=== PATIENT | female | born 1945 | race Caucasian/White ===

== ENCOUNTER 2017-02-10 13:43 | Outpatient (CLI) | payer MEDICARE ==
[2017-02-10 15:39] LABS: Hematocrit 42.5 % (36.0-47.0); Mean Platelet Volume 8.7 fL (7.4-10.4); Red Blood Cell (RBC) Count 4.29 mill/uL (4.20-5.40); White Blood Cell (WBC) Count 8.8 thou/uL (4.8-10.8)
[2017-02-10 15:47] LABS: PTT 30.1 SEC (22.9-36.1); Prothrombin Time 14.4 SEC (12.0-14.7)
[2017-02-10 16:00] LABS: Anion Gap 14 mmol/L (10-20); BUN (Urea Nitrogen) 26 mg/dL (9.8-20.1); Calc. Creatinine Clearance 0 mL/min (70-130); Calcium 9.2 mg/dL (7.8-10.44); Carbon Dioxide 30 mmol/L (23-31); Chloride 105 mmol/L (98-107); Estimated GFR-MDRD 51
--- NOTE | 2017-02-11 16:33 | EKG ---
Test Reason : Blood Pressure : / mmHG Vent. Rate : 083 BPM Atrial Rate : 093 BPM P-R Int : 000 ms QRS Dur : 076 ms QT Int : 388 ms P-R-T Axes : 000 042 061 degrees QTc Int : 455 ms Atrial fibrillation Low voltage QRS Septal infarct , age undetermined cannot be excluded Abnormal ECG Confirmed by AINSLEY CHONG ([id number]) on 02/11/2017 4:33:07 PM Referred By: ROBERTO CARLOS Confirmed By:AINSLEY CHONG
== END 2017-02-10 13:44 | disposition home or self-care (01) ==
LOC: LABBT 13:43
PROVIDERS: ATTEND Internal Medicine Cardiovascular Disease
DX: Z01.818 Encounter for other preprocedural examination (principal); I48.2 Chronic atrial fibrillation
CPT/HCPCS: 80048; 85027; 85610; 85730; 93005; 93010

== ENCOUNTER 2017-02-12 09:49 | Day surgery (SDC) | payer MEDICARE ==
[2017-02-10 14:19] VITALS: BMI 44.6
[2017-02-12] MEDS ORDERED: Diprivan 20 ML ONE (10:45)
[2017-02-12] MEDS ORDERED: Midazolam HCl 2 mg/2 ml Vial ONE (10:45)
[2017-02-12] MEDS ORDERED: Hydrocortisone 1% Cream 30 GM TUBE ONE (12:06)
--- NOTE | 2017-02-12 12:16 | OP ---
DATE OF SERVICE: 02/12/2017 PREOPERATIVE DIAGNOSIS: Atrial fibrillation. POSTOPERATIVE DIAGNOSIS: Sinus rhythm. PROCEDURE: Synchronized cardioversion. DESCRIPTION OF PROCEDURE: The patient was consented for the procedure. The patient had been taking Eliquis over the last 5 weeks without missing a single dose. We decided to proceed with cardioversio n only. Propofol was used for conscious sedation. Synchronized cardioversion was performed x2 at 150 and 200 joules. Successful cardioversion was noted at 200 joules. IMPRESSION: Successful synchronized cardioversion.
[2017-02-12] MEDS ORDERED: Propofol 200 MG/20 ML VIAL ONE (15:16)
== END 2017-02-12 13:23 | disposition home or self-care (01) ==
LOC: CCL 09:49
PROVIDERS: ATTEND Internal Medicine Cardiovascular Disease
DX: I48.2 Chronic atrial fibrillation (principal); I10 Essential (primary) hypertension; F32.9 Major depressive disorder, single episode, unspecified; M19.90 Unspecified osteoarthritis, unspecified site; Z96.653 Presence of artificial knee joint, bilateral; Z90.49 Acquired absence of other specified parts of digestive tract; Z82.49 Family history of ischemic heart disease and other diseases of the circulatory system; Z79.899 Other long term (current) drug therapy; Z79.01 Long term (current) use of anticoagulants; Z98.890 Other specified postprocedural states; Z87.891 Personal history of nicotine dependence
CPT/HCPCS: 92960; J2250; J2704

== ENCOUNTER 2017-03-08 05:05 | Inpatient (IN) | payer MEDICARE ==
[2017-03-08] MEDS ORDERED: Ondansetron HCl/PF 4 MG/2 ML Vial ONE (05:17)
[2017-03-08] MEDS ORDERED: Diltiazem HCl 125 MG, Admixture Fee 1 EACH in Sodium Chloride 0.9% 100 ML IVPB SCH ×2 (05:45→15:00)
[2017-03-08 05:53] LABS: #Lymphocytes 0.8 thou/uL (1.20-3.40); #Monocytes 0.9 thou/uL (0.11-0.59); #Neutrophils 10.1 thou/uL (1.40-6.50); %Basophils 0.1 % (0.0-1.0); %Eosinophils 0.1 % (0.0-10.0); %Lymphocytes 7.1 % (21.0-51.0); %Monocytes 7.1 % (0.0-10.0); %Neutrophils 85.6 % (42.0-75.0); Hemoglobin 15.2 g/dL (12.0-16.0); Mean Corpuscular HGB CONC 32.8 g/dL (32.0-36.0); Mean Corpuscular Hemoglobin 32.6 pg (27.0-31.0); Mean Corpuscular Volume 99.2 fl (81.0-99.0); Mean Platelet Volume 8.4 fL (7.4-10.4); Platelet Count 163 thou/uL (130-400); RBC Distribution Width 12.7 % (11.5-14.5); Red Blood Cell (RBC) Count 4.68 mill/uL (4.20-5.40); White Blood Cell (WBC) Count 11.9 thou/uL (4.8-10.8)
[2017-03-08] MEDS ORDERED: Azithromycin 500 MG in Sodium Chloride 0.9% 250 ML 250 ML IVPB SCH (06:00)
[2017-03-08 06:09] LABS: ALT (SGPT) 18 U/L (8-55); AST (SGOT) 26 U/L (5-34); Albumin 4.3 g/dL (3.4-4.8); Alkaline Phosphatase 80 U/L (40-150); Anion Gap 17 mmol/L (10-20); BUN (Urea Nitrogen) 19 mg/dL (9.8-20.1); Bilirubin, Total 0.7 mg/dL (0.2-1.2); CK (CPK) 103 U/L (29-168); Calc. Creatinine Clearance 0 mL/min (70-130); Calcium 9.3 mg/dL (7.8-10.44); Carbon Dioxide 22 mmol/L (23-31); Chloride 100 mmol/L (98-107); Estimated GFR-MDRD 48; Globulin 3.4 g/dL (2.4-3.5); Glucose 227 mg/dL (80-115); Potassium 3.8 mmol/L (3.5-5.1); Protein, Total 7.7 g/dL (6.0-8.3); Sodium 135 mmol/L (136-145)
[2017-03-08 06:12] LABS: CKMB 0.6 ng/mL (0-6.6); Troponin I 0.016 ng/mL (< 0.028)
--- NOTE | 2017-03-08 08:07 | RAD ---
UPRIGHT PORTABLE CHEST 1 VIEW: Date: 03/08/17 HISTORY: 71-year-old female with history of fever and hypoxia, with cough, nausea, vomiting, and diarrhea for several days. FINDINGS: Monitor leads overlie the chest. Borderline cardiomegaly. Mild vascular congestion. No confluent pneu monia, overt edema, or pleural effusion. IMPRESSION: Borderline cardiomegaly and mild vascular congestion. No confluent pneumonia, overt edema, pleural ef fusion, or other acute intrathoracic disease. Stable appearance from 06/01/07. POS: [facility]
[2017-03-08] MEDS ORDERED: Ondansetron ODT 4 MG TAB SL PRN (09:20)
[2017-03-08] MEDS ORDERED: Ondansetron HCl/PF 4 MG/2 ML Vial IVP PRN (09:20)
[2017-03-08] MEDS ORDERED: Acetaminophen 325 MG TAB PO PRN ×2 (09:20→11:37)
[2017-03-08 09:48] LABS: Lactic Acid 1.3 mmol/L (0.5-2.2)
[2017-03-08] MEDS ORDERED: Guaifenesin DM 100-10/5 ML UDCUP PO PRN (11:37)
[2017-03-08] MEDS ORDERED: Senokot 8.6 MG TAB PO PRN (11:37)
--- NOTE | 2017-03-08 12:57 | HP ---
REASON FOR ADMISSION: AFIB/flutter with RVR, influenzae A, acute respiratory failure with hypoxia. HISTORY OF PRESENTING ILLNESS: The patient gives history of having coughing, sneezing, nausea with vomiting, all of which started on Friday night. From this morning, she has been having specks of blood when she tries to bring up phlegm with coughing episodes. She has had diarrhea 4 times yesterday and two this morning which is mostly semi-solid stools. She has taken a flu shot for this year. Patient has tested positive for influenza A here in the ER. On arrival, she was found to have had atrial flutter with ventricular rate of 133 beats per minute. The patient states she has known history of atrial fibrillation which was diagnosed in November of last year. She has seen Ashish and has had cardioversion done on 02/12/2017. She apparently was in sinus rhythm for nearly 2 weeks, but went back into her atrial fibrillation in early February. She has a scheduled appointment to see Dr. Alexander on for likely ablation and EP studies. She has no complaints of chest pain or palpitations. No complaints of orthopnea or PND. Had fever of 99 on arrival here. PAST MEDICAL AND SURGICAL HISTORY: History of AFIB, diagnosed in 11/2016, hypertension, prior cardioversion for atrial fib in 02/20/2017, obesity, history of squamous cell carcinoma of skin, bilateral total knee replacement, bilateral rotator cuff repair, cholecystectomy. CURRENT MEDICATIONS: Takes metoprolol 50 mg twice daily, Eliquis 5 mg twice daily, losartan with hydrochlorothiazide 100/25 mg daily, Lasix 20 mg daily, paroxetine 10 mg daily, propafenone 150 mg 4 times daily. ALLERGIES: No known drug allergies. PERSONAL HISTORY: Smoked for a brief period of time and quit in . Does not abuse alcohol or drugs. Lives with her . FAMILY HISTORY: Mother at the age of 87 years. She has had history of colon cancer. Her maternal grandma also had colon cancer. Father at the age of 76 years. He has had history of myocardial infarction and coronary artery disease. REVIEW OF SYSTEMS: The following complete review of systems was negative, unless otherwise mentioned in the HPI or below: Constitutional: Weight loss or gain, ability to conduct usual activities. Skin: Rash, itching. Eyes: Double vision, pain. ENT/Mouth: Nose bleeding, neck stiffness, pain, tenderness. Cardiovascular: Palpitations, dyspnea on exertion, orthopnea. Respiratory: Shortness of breath, wheezing, cough, hemoptysis, fever or night sweats. Gastrointestinal: Poor appetite, abdominal pain, heartburn, nausea, vomiting, constipation, or diarrhea. Genitourinary: Urgency, frequency, dysuria, nocturia. Musculoskeletal: Pain, swelling. Neurologic/Psychiatric: Anxiety, depression. Allergy/Immunologic: Skin rash, bleeding tendency. PHYSICAL EXAMINATION: GENERAL: The patient is a 71-year-old female who is currently not in any acute distress. VITAL SIGNS: Blood pressure 160/128 on arrival, her initial pulse was 152 on arrival, currently around 118 per minute, respiratory rate was 24 on arrival, temperature 99 degrees Fahrenheit, saturating 90% on room air with saturations peaking up to 94% on 2 liters nasal cannula. NECK: Supple, no elevated JVD. EYES: Extraocular muscles intact. Pupils reacting to light. ORAL CAVITY: Mucous membranes are moist. There is congestion in the posterior pharynx. No exudates. CARDIOVASCULAR SYSTEM: S1, S2 heard. Irregular rhythm. RESPIRATORY SYSTEM: Air entry 1+ bilateral, scattered rhonchi plus no wheezes. ABDOMEN: Soft, bowel sounds heard. No tenderness, rigidity or guarding. EXTREMITIES: No peripheral edema or calf tenderness. VASCULAR SYSTEM: Peripheral pulses 1+ bilateral. No ischemic ulcerations or gangrene. CENTRAL NERVOUS SYSTEM: No gross focal deficits seen. Patient is alert, awake , and oriented well. PSYCHIATRIC SYSTEM: The patient's mood is euthymic. No hallucinations or delusions. IMAGING DATA AND LABORATORY DATA: EKG done shows atrial flutter at 133 beats per minute on arrival. White count of 11.9, hemoglobin and hematocrit 15 and 46 , platelet count is 163, MCV is 99 with 85% neutrophils, serum bicarbonate 22, BUN 19, creatinine 1.1, glucose 227, lactic acid 2.3, BNP is 631. Second set of troponin is 0.09, CK-MB 0.6. Influenza nasal swab is positive for A antigen. Chest x-ray done shows mild cardiomegaly with mild pulmonary vascular congestion. CLINICAL IMPRESSION AND PLAN: Patient will be admitted to telemetry for influenza A, acute respiratory failure with hypoxia, atrial flutter/fib with RVR. The patient has felt good after nebulization in the ER. She is also on nasal cannula with saturating around 93%-94% now. We will continue her nebulization along with Tamiflu and empiric Omnicef. We will stop her Eliquis if her epistaxis/hemoptysis gets worsened. She is on propafenone, Lopressor, Hyzaar, and paroxetine at home and we will continue the same dose. We will consult Dr. Hinojosa, her facility security officer, who is consultant internship for this weekend as well. Echo with 2D Doppler for LV function and to rule out thrombus will be obtained. We will continue to closely monitor her on telemetry. HIRAL
[2017-03-08 13:00] LABS: Hemoglobin 14.4 g/dL (12.0-16.0); Platelet Count 149 thou/uL (130-400)
[2017-03-08] MEDS ORDERED: Propafenone HCl 150 MG TAB PO SCH (13:00)
[2017-03-08 13:05] VITALS: BMI 46.0
--- NOTE | 2017-03-08 16:04 | CON ---
DATE OF CONSULTATION: 03/08/2017 REASON FOR CONSULTATION: Atrial fibrillation. HISTORY OF PRESENT ILLNESS: Ms. Salas is a very pleasant 71-year-old woman, who I have seen and eval uated in the past. She underwent successful cardioversion at the end of January for shortness of br eath. She has been on anticoagulation therapy. She has also been on propafenone. Recently, she presented with fevers, chills, cough, congestion. She was found to be in atrial fibril lation. This has been known since her followup visit. She was in atrial fibrillation shortly after cardioversion. She was treated medically. She was also referred to an EP for ablation. Her rate ap pears to be well controlled. PAST MEDICAL HISTORY: Hypertension, cholecystectomy, bilateral knee surgery, obesity. ALLERGIES: None. HOME MEDICATIONS: Include losartan, hydrochlorothiazide, Lasix, paroxetine, meloxicam, metoprolol, F lovent, Tylenol, Sudafed, Claritin, aspirin, Eliquis and propafenone. REVIEW OF SYSTEMS: Ten-point review of systems is reviewed and as above, otherwise negative. PHYSICAL EXAMINATION: GENERAL: Patient is a pleasant female who is in no acute distress. The patient appears her stated a ge. VITAL SIGNS: Blood pressure 120/72, pulse 109, respirations 20. NEUROLOGIC: The patient is alert and oriented times 3 with no focal neurologic deficits. HEENT: Sclerae without icterus. Mouth has moist mucous membranes with normal pallor. NECK: No JVD. Carotid upstroke brisk. No bruits bilaterally. LUNGS: Clear to auscultation with unlabored respirations. BACK: No scoliosis or kyphosis. CARDIAC: Irregularly irregular. ABDOMEN: Soft, nontender, nondistended. No peritoneal signs present. No hepatosplenomegaly. No abnormal striae. EXTREMITIES: 2+ femoral and 2+ dorsalis pedis pulses. No cyanosis, clubbing, or edema. SKIN: No gross abnormalities. PERTINENT LABORATORY DATA: Hemoglobin 14.4, hematocrit 42.1. Creatinine 1.16. BNP of 631, peak tro ponin 0.090. IMPRESSION: 1. Atrial fibrillation with rapid ventricular response. 2. Flu. RECOMMENDATIONS: Continue aspirin in addition to Eliquis at 5 mg one p.o. b.i.d. She would also rec ommend increasing metoprolol to 75 mg one p.o. b.i.d. She would like to proceed with atrial fibrilla tion ablation. At this point, we will also stop Rythmol given that she is back in atrial fibrillatio n.
[2017-03-08] MEDS ORDERED: Metoprolol Tartrate 50 MG TAB PO SCH (21:00)
[2017-03-08] MEDS: Cefdinir 300 MG CAP PO SCH (21:37)
[2017-03-08] MEDS: Apixaban 5 MG TAB PO SCH (21:37)
[2017-03-08] MEDS: Famotidine 20 MG TAB PO SCH (21:38)
[2017-03-08] MEDS: Metoprolol Tartrate 50 MG TAB PO SCH (21:38)
[2017-03-08] MEDS: Oseltamivir 75 MG CAP PO SCH (21:38)
[2017-03-09 05:13] LABS: #Lymphocytes 1.3 thou/uL (1.20-3.40); #Monocytes 0.7 thou/uL (0.11-0.59); #Neutrophils 3.7 thou/uL (1.40-6.50); %Basophils 0.3 % (0.0-1.0); %Eosinophils 0.2 % (0.0-10.0); %Lymphocytes 21.9 % (21.0-51.0); %Monocytes 12.8 % (0.0-10.0); %Neutrophils 64.8 % (42.0-75.0); Hemoglobin 13.5 g/dL (12.0-16.0); Mean Corpuscular HGB CONC 31.3 g/dL (32.0-36.0); Mean Corpuscular Hemoglobin 31.7 pg (27.0-31.0); Mean Platelet Volume 8.4 fL (7.4-10.4); Platelet Count 123 thou/uL (130-400); RBC Distribution Width 12.8 % (11.5-14.5); Red Blood Cell (RBC) Count 4.26 mill/uL (4.20-5.40); White Blood Cell (WBC) Count 5.7 thou/uL (4.8-10.8)
[2017-03-09 05:27] LABS: Anion Gap 12 mmol/L (10-20); BUN (Urea Nitrogen) 19 mg/dL (9.8-20.1); Calc. Creatinine Clearance 112 mL/min (70-130); Calcium 8.9 mg/dL (7.8-10.44); Carbon Dioxide 24 mmol/L (23-31); Chloride 105 mmol/L (98-107); Estimated GFR-MDRD 59; Glucose 88 mg/dL (80-115); Potassium 3.4 mmol/L (3.5-5.1); Sodium 138 mmol/L (136-145)
[2017-03-09] MEDS: Cefdinir 300 MG CAP PO SCH ×2 (09:30→21:31)
[2017-03-09] MEDS: Oseltamivir 75 MG CAP PO SCH ×2 (09:30→21:31)
[2017-03-09] MEDS: Metoprolol Tartrate 50 MG TAB PO SCH ×2 (09:31→21:31)
[2017-03-09] MEDS: Apixaban 5 MG TAB PO SCH ×2 (09:31→21:30)
[2017-03-09] MEDS: PARoxetine 20 MG TAB PO SCH (09:31)
[2017-03-09] MEDS: Losartan/Hydrochlorothiazide 100 mg/25 mg Tablet PO SCH (09:32)
[2017-03-09] MEDS: Multivit, Therapeutic 1 TAB PO SCH (09:32)
[2017-03-09] MEDS: Famotidine 20 MG TAB PO SCH ×2 (09:32→21:31)
--- NOTE | 2017-03-09 10:07 | PDOC.PN ---
- Subjective Encounter Start Date: 03/09/17 Encounter Start Time: 08:00 Subjective: had sob early this am, got resolved with nebs -: no chest pain or palp -: feels better now, is sitting in sofa - Objective Resuscitation Status: Resuscitation Status FULL:Full Resuscitation MAR Reviewed: Yes Vital Signs & Weight: Vital Signs (12 hours) Temp Pulse Resp BP Pulse Ox 03/09/17 08:00 97.5 F L 81 22 H 144/75 H 95 03/09/17 06:53 80 16 96 03/09/17 04:45 94 L 03/09/17 04:00 97.7 F 59 L 20 121/66 94 L 03/09/17 00:32 77 16 96 Weight Weight 277 lb I&O: 03/08/17 03/09/17 03/10/17 06:59 06:59 06:59 Intake Total 1265 Output Total 1000 Balance 265 Result Diagrams: 03/09/17 05:01 03/09/17 05:01 Phys Exam - Physical Examination HEENT: PERRLA, moist MMs Neck: no JVD, supple Respiratory: no wheezing, no rales rhonchi+ Cardiovascular: RRR, no significant murmur Gastrointestinal: soft, non-tender, positive bowel sounds Musculoskeletal: no edema, pulses present Neurological: non-focal, moves all 4 limbs Psychiatric: A&O x 3 Dx/Plan (1) Afib Code(s): I48.91 - UNSPECIFIED ATRIAL FIBRILLATION Status: Acute Comment: rate controlled (2) Influenza A Code(s): J10.1 - FLU DUE TO OTH IDENT INFLUENZA VIRUS W OTH RESP MANIFEST Status: Acute (3) HTN (hypertension) Code(s): I10 - ESSENTIAL (PRIMARY) HYPERTENSION Status: Chronic Qualifiers: Hypertension type: essential hypertension Qualified Code(s): I10 - Essential (primary) hypertension (4) Obesity Code(s): E66.9 - OBESITY, UNSPECIFIED Status: Chronic Qualifiers: Obesity classification: adult class 3 (BMI >= 40) Body mass index: BMI 45.0 -49.9 (5) Osteoarthritis Code(s): M19.90 - UNSPECIFIED OSTEOARTHRITIS, UNSPECIFIED SITE Status: Chronic Qualifiers: Osteoarthritis location: multiple joints Osteoarthritis type: primary Qualified Code(s): M15.0 - Primary generalized (osteo)arthritis - Plan keerthi patton, watch for rvr -: is on increased dose of lopressor at 75mg bid -: omnicef and tamiflu along with nebs -: to ambulate in hallway as tolerated -: asp, eliquis and hyzaar. Off propafenone * . Review of Systems - Medications/Allergies Allergies/Adverse Reactions: Allergies Allergy/AdvReac Type Severity Reaction Status Date / Time No Known Allergies Allergy Verified 03/08/17 10:23 Medications: Current Medications Acetaminophen (Tylenol) 650 mg PO Q4H PRN PRN Reason: Headache/Fever or Pain Last Admin: 03/08/17 21:39 Dose: 650 mg Albuterol/Ipratropium (Duoneb) 3 ml NEB [id number] [facility] Last Admin: 03/09/17 06:53 Dose: 3 ml Apixaban (Eliquis) 5 mg PO BID [facility] Last Admin: 03/09/17 09:31 Dose: 5 mg Aspirin (Aspirin Chewable) 81 mg PO DAILY [facility] Last Admin: 03/09/17 09:32 Dose: 81 mg Cefdinir (Omnicef) 300 mg PO BID [facility] Last Admin: 03/09/17 09:30 Dose: 300 mg Famotidine (Pepcid) 20 mg PO BID [facility] Last Admin: 03/09/17 09:32 Dose: 20 mg Guaifenesin/Dextromethorphan (Robitussin Dm) 15 ml PO Q4H PRN PRN Reason: Cough HCTZ/Losartan Potassium (Hyzaar 100/25) 1 tab PO DAILY [facility] Last Admin: 03/09/17 09:32 Dose: 1 tab Metoprolol Tartrate (Lopressor) 75 mg PO BID [facility] Last Admin: 03/09/17 09:31 Dose: 75 mg Multivitamins (Theragran) 1 tab PO DAILY [facility] Last Admin: 03/09/17 09:32 Dose: 1 tab Oseltamivir Phosphate (Tamiflu) 75 mg PO BID [facility] Stop: 03/13/17 09:01 Last Admin: 03/09/17 09:30 Dose: 75 mg Paroxetine HCl (Paxil) 10 mg PO DAILY [facility] Last Admin: 03/09/17 09:31 Dose: 10 mg Senna (Senokot) 2 tab PO HSPRN PRN PRN Reason: Constipation
[2017-03-09] MEDS: Acetaminophen 500 MG TAB PO PRN (21:36)
--- NOTE | 2017-03-10 08:43 | PRG ---
DATE OF SERVICE: 03/10/2017 SUBJECTIVE: Ms. Salas is doing better. Her heart rate appears to be stable. Her respiratory status also continues to be improving. PHYSICAL EXAMINATION: VITAL SIGNS: Blood pressure 128/63, pulse 63, temperature 97.5. LUNGS: No crackles noted bilaterally. Decreased rales present. HEART: Irregularly irregular. ABDOMEN: Soft, nontender, nondistended. EXTREMITIES: No edema. IMPRESSION: 1. Atrial fibrillation. 2. Recent viral illness. RECOMMENDATIONS: From a cardiovascular standpoint, she is stable. At this point, would continue rat e control and anticoagulation therapy. Will discontinue aspirin. Continue Eliquis 5 mg one p.o. b.i .d. She is also on metoprolol 75 b.i.d. Plan is to follow up with me in the next 3-4 weeks and have a followup appointment with EP that is already scheduled. Please reconsult if needed.
[2017-03-10] MEDS: Oseltamivir 75 MG CAP PO SCH (10:22)
[2017-03-10] MEDS: Cefdinir 300 MG CAP PO SCH (10:23)
[2017-03-10] MEDS: Apixaban 5 MG TAB PO SCH (10:23)
[2017-03-10] MEDS: Metoprolol Tartrate 50 MG TAB PO SCH (10:24)
[2017-03-10] MEDS: Losartan/Hydrochlorothiazide 100 mg/25 mg Tablet PO SCH (10:25)
[2017-03-10] MEDS: Famotidine 20 MG TAB PO SCH (10:26)
[2017-03-10] MEDS: Multivit, Therapeutic 1 TAB PO SCH (10:26)
[2017-03-10] MEDS: PARoxetine 20 MG TAB PO SCH (10:27)
[2017-03-10] MEDS: Acetaminophen 500 MG TAB PO PRN (10:33)
--- NOTE | 2017-03-10 11:19 | PDOC.PN ---
- Subjective Encounter Start Date: 03/10/17 Encounter Start Time: 07:20 Subjective: feels better, cough+ -: no palpitations or chest pain - Objective Resuscitation Status: Resuscitation Status FULL:Full Resuscitation MAR Reviewed: Yes Vital Signs & Weight: Vital Signs (12 hours) Temp Pulse Resp BP Pulse Ox 03/10/17 10:09 98.1 F 89 18 126/77 94 L 03/10/17 07:19 85 16 97 03/10/17 04:00 97.5 F L 63 20 128/63 96 03/10/17 00:28 79 16 96 Weight Weight 277 lb I&O: 03/09/17 03/10/17 03/11/17 06:59 06:59 06:59 Intake Total 1265 1210 Output Total 1000 1200 Balance 265 10 Result Diagrams: 03/09/17 05:01 03/09/17 05:01 Phys Exam - Physical Examination HEENT: PERRLA, moist MMs Neck: no JVD, supple Respiratory: no wheezing, no rales Cardiovascular: no significant murmur, no rub Gastrointestinal: soft, non-tender, positive bowel sounds Musculoskeletal: no edema, pulses present Neurological: non-focal, moves all 4 limbs Psychiatric: A&O x 3 Dx/Plan (1) Atrial flutter Code(s): I48.92 - UNSPECIFIED ATRIAL FLUTTER Status: Acute (2) Afib Code(s): I48.91 - UNSPECIFIED ATRIAL FIBRILLATION Status: Acute Comment: rate controlled (3) Influenza A Code(s): J10.1 - FLU DUE TO OTH IDENT INFLUENZA VIRUS W OTH RESP MANIFEST Status: Acute (4) HTN (hypertension) Code(s): I10 - ESSENTIAL (PRIMARY) HYPERTENSION Status: Chronic Qualifiers: Hypertension type: essential hypertension Qualified Code(s): I10 - Essential (primary) hypertension (5) Obesity Code(s): E66.9 - OBESITY, UNSPECIFIED Status: Chronic Qualifiers: Obesity classification: adult class 3 (BMI >= 40) Body mass index: BMI 45.0 -49.9 (6) Osteoarthritis Code(s): M19.90 - UNSPECIFIED OSTEOARTHRITIS, UNSPECIFIED SITE Status: Chronic Qualifiers: Osteoarthritis location: multiple joints Osteoarthritis type: primary Qualified Code(s): M15.0 - Primary generalized (osteo)arthritis - Plan oral omnicef, tamiflu and alb inhaler prn -: a.flutter/fib per cardiology advice -: has outpt appt with on Mar -: may dc home if ok with cardiology * .
[2017-03-10 12:38] VITALS: BP 117/66; TEMP 98
[2017-03-10 13:22] LABS: Hemoglobin 14.5 g/dL (12.0-16.0); Platelet Count 160 thou/uL (130-400)
--- NOTE | 2017-03-10 17:52 | EKG ---
Test Reason : Blood Pressure : / mmHG Vent. Rate : 088 BPM Atrial Rate : 088 BPM P-R Int : 252 ms QRS Dur : 084 ms QT Int : 398 ms P-R-T Axes : 050 005 055 degrees QTc Int : 481 ms Sinus rhythm with sinus arrhythmia with 1st degree A-V block Nonspecific ST abnormality Left atrial enlargement Low voltage QRS Abnormal ECG When compared with ECG of 08-MAR-2017 05:21, (Unconfirmed) Sinus rhythm has replaced Atrial flutter Vent. rate has decreased BY [address] no longer depressed in Lateral leads T wave amplitude has increased in Inferior leads Nonspecific T wave abnormality no longer evident in Lateral leads Confirmed by DOREEN JASSO, DR. Syed ([id number]) on 03/10/2017 5:51:58 PM Referred By: DIDI Confirmed By:DR. Yahaira LOGAN MD
--- NOTE | 2017-03-10 23:38 | CON ---
DATE OF CONSULTATION: 03/10/2017 ELECTROPHYSIOLOGY CONSULTATION REPORT REFERRING PHYSICIAN: Mykel Hinojosa M.D. I am seeing Ms. Salas at our [facility] telemetry floor as an electrophysiology dairy consultant. Her problems are: 1. Sustained atrial arrhythmias. A. Prior history of atrial fibrillation requiring propafenone on administration, cardioversion on . B. Current admission with subsequent atrial flutter with typical isthmus-dependent on morphology, bu t with controlled ventricular rates. C. Chronic anticoagulation with Eliquis. 2. Acute hospitalization with influenza. 3. History of preserved LVEF 55% to 60% diastolic dysfunction, difficulty due to ongoing atrial fibr illation, mild MR, mild TR on echo on 03/09/2017. 4. Coronary artery risk factor. A. Obesity. B. Hypertension. ALLERGIES: None. MEDICATIONS AT HOME: Include Eliquis 5 mg twice a day, metoprolol 50 mg twice a day, losartan with h ydrochlorothiazide 100/25 mg daily, Lasix 20 mg daily, paroxetine, propafenone 150 mg 4 times a day. SUBJECTIVE: Ms. Salas is here with symptoms of flu. She was admitted on , showed a bloody phleg m. She denies palpitations. Has chronic dyspnea, but not worse than usual. She denies chest pains. Denies passing out. No new stroke-like symptoms or bleeding issues noted. Apart from nausea and v omiting, no other gastrointestinal issues. REVIEW OF SYSTEMS: The rest of 12-point system otherwise unremarkable. PAST MEDICAL HISTORY: As above. Patient has been diagnosed to have atrial fibrillation. In November , cardioversion as above was performed. Previous episode was 2 atrial fibrillations, but not flutter as per Dr. Hinojosa's recollection. SOCIAL HISTORY: Patient denies smoking, ETOH, or drug use. FAMILY HISTORY: Noncontributory. OBJECTIVE DATA: VITAL SIGNS: Blood pressure is 117/66, heart rate is 87, respirations 20, temperature 98 degrees Fah renheit. GENERAL: She is alert and oriented woman with elevated BMI, in no apparent distress. NECK: Supple. Jugular veins are distended. CHEST: Coarse without crackles. CARDIAC: Heart sounds are irregularly irregular. S1 and S2 variable. No murmur or gallop. ABDOMEN: Benign. Bowel sounds positive. EXTREMITIES: Lower extremities without edema, clubbing, or cyanosis. Pulses are adequate. NEUROLOGIC: Patient is nonfocal. MUSCULOSKELETAL: No joint swelling or deformities. SKIN: Without rash. DATABASE: EKGs reviewed revealing typical atrial flutter with variable AV conduction, occasional 2:1 conduction was also seen, more better-controlled rates are seen on telemetry as well. LABORATORY DATA: White cell count is 5.7, hemoglobin is 13.5, platelet count is 123. Sodium 138, po tassium 3.4, BUN is 19, creatinine 0.94. The blood cultures are negative x2, but nasopharyngeal swab is positive for influenza A. ASSESSMENT AND PLAN: Ms. Salas is a pleasant 71-year-old woman with history of persistent atrial fib rillation requiring cardioversion and propafenone use. She is now admitted with the influenza and he r atrial arrhythmia recurred, but at this time it seems to be more in typical atrial flutter than atr ial fibrillation. She is taking propafenone 150 mg 3 times a day, which was stopped during this hospitalization. We discussed the mechanisms for both atrial fibrillation and atrial flutter, the differences between them as well. At this point, I agree with holding propafenone, which might have organized the atrial fibrillation to atrial flutter. We discussed with her the option of ablation versus cardioversion, which likely though alone will not be sufficient to keep her out of atrial arrhythmia. I detailed th e difference between the atrial fibrillation and atrial flutter ablation as well. Our planning at this point is to obtain further data from Dr. Hinojosa's office. She already has ap pointments scheduled in the beginning of March. Thus, we had a good time to discuss further treat ment options as well. Hopefully, by then, her flu-like symptoms resolved for now. I have encouraged her to continue Eliquis and metoprolol both.
--- NOTE | 2017-03-11 01:10 | DIS ---
DATE OF ADMISSION: 03/08/2017 DATE OF DISCHARGE: 03/10/2017 DISCHARGE DISPOSITION: To home. PRIMARY DISCHARGE DIAGNOSES: Influenza A with bronchitis, resolving; atrial fibrillation with rapid ventricular response/aflutter, which is rate controlled. SECONDARY DISCHARGE DIAGNOSES: Hypertension, obesity, osteoarthritis. PROCEDURES DONE DURING HOSPITALIZATION: Echo with 2D Doppler done showed EF of 55%-60%. Chest x-ray done showed mild pulmonary vascular congestion with cardiomegaly, no confluent pneumonia seen. Bloo d cultures x2, no growth. Influenza A antigen was positive on the nasopharyngeal swab for flu. Whit e count was 11 on the day of admission with discharge numbers of 5.7, troponin I was indeterminate pe aking up to 0.09. BNP 631. DISCHARGE MEDICATIONS: Albuterol inhaler q.6 hourly p.r.n., Eliquis 5 mg twice daily, Omnicef 300 mg p.o. twice daily for 6 days, Lasix 20 mg daily, Hyzaar 100/25 mg 1 tab daily, Lopressor 75 mg twice daily, multivitamin 1 tab once daily, Tamiflu 75 mg twice daily, paroxetine 10 mg daily. ALLERGIES: No known drug allergies. INPATIENT CONSULTS: Dr. Hinojosa for Cardiology. DISCHARGE PLAN: Patient to follow up with Dr. Hinojosa as advised and Dr. Darrell Alexander on 03/27. BRIEF COURSE DURING HOSPITALIZATION: The patient initially got admitted with complaints of coughing, sneezing, nausea, and vomiting from Friday night. She was positive for influenza A in the ER. Misha keller also had nearly 4 times diarrhea prior to arrival. There were more of semi-solid stools. She had fever of 99 degrees on arrival as well. Her EKG revealed atrial fibrillation with RVR. The pat ient was placed initially on Cardizem drip along with nebulizers and Tamiflu with empiric antibiotics . She has responded well to the above measures. She was evaluated by Dr. Hinojosa. Her atrial fib rillation with RVR got converted to atrial flutter during her stay. This morning, she was seen by Dr Alfredito Hinojosa again and has been cleared for discharge. The patient has a followup appointment with Dr Alfredito Alexander, molder punch on the 03/27, for likely EP evaluation and ablation. She is other mata hemodynamically stable and we will be shortly discharged. Please see a [id number] documentati on for the day of discharge on [facility].
== END 2017-03-10 14:13 | disposition home or self-care (01) | DRG 193 ==
LOC: ERS 05:05 → 2NO 09:17
PROVIDERS: ADMIT Internal Medicine; ATTEND Internal Medicine
DX: J10.1 Influenza due to other identified influenza virus with other respiratory manifestations (principal); J96.01 Acute respiratory failure with hypoxia; I48.92 Unspecified atrial flutter; Z68.42 Body mass index [BMI] 45.0-49.9, adult; I48.91 Unspecified atrial fibrillation; E66.9 Obesity, unspecified; I25.10 Atherosclerotic heart disease of native coronary artery without angina pectoris; M15.0 Primary generalized (osteo)arthritis; Z79.01 Long term (current) use of anticoagulants; Z96.653 Presence of artificial knee joint, bilateral; Z87.2 Personal history of diseases of the skin and subcutaneous tissue; Z87.891 Personal history of nicotine dependence; Z82.49 Family history of ischemic heart disease and other diseases of the circulatory system; Z80.0 Family history of malignant neoplasm of digestive organs
CPT/HCPCS: 36415; 71045; 80048; 80053; 82553; 82565; 83605; 83880; 84484; 85014; 85018; 85025; 85049; 86850; 86900; 86901; 87040; 93005; 93010; 93306; 94640; 96365; 96366; 96368; 96375; 96376; J0456; J0696; J2405; J7050; J7620

== ENCOUNTER 2017-03-24 12:14 | Outpatient (CLI) | payer MEDICARE ==
--- NOTE | 2017-03-24 13:48 | RAD ---
CHEST 2 VIEWS: Date: 03/24/17 HISTORY: Dyspnea. COMPARISON: 03/08/17. FINDINGS: Normal cardiac silhouette. Pulmonary vessels and hilum are normal. Costophrenic angles are clear. No consolidation or mass. No pneumothorax. No osseous abnormalities. Extensive osteophyte formation kayleigh g the thoracic spine is noted. IMPRESSION: No acute cardiopulmonary process. POS: [facility]
== END 2017-03-24 12:15 | disposition home or self-care (01) ==
LOC: RAD 12:14
PROVIDERS: ATTEND Internal Medicine Pulmonary Disease
DX: R06.00 Dyspnea, unspecified (principal)
CPT/HCPCS: 71046

== ENCOUNTER 2017-04-17 07:19 | Outpatient (CLI) | payer MEDICARE ==
--- NOTE | 2017-04-17 09:19 | CT ---
CT ANGIO CHEST WITH IV COTNRAST AND 3D POSTPROCESSING: HISTORY: Shortness of breath, atrial fibrillation, preprocedure fir EP evaluation. FINDINGS: Please see the molded frames assembler's report for coronary and cardiac findings. No pleural or pericardial effusions are seen. No aneurysmal dilatation of the thoracic aorta is iden tified. There is a 1 cm parenchymal nodule in the right upper lobe. Degenerative changes are presen t in the spine. Further evaluation with CT PET scan is recommended for evaluation of the 1 cm right upper lobe lung n odule. CODE T CODE LN POS: [facility]
[2017-04-17] MEDS ORDERED: Iopamidol 370 76% 100 ML VIAL ONE (11:47)
== END 2017-04-17 07:20 | disposition home or self-care (01) ==
LOC: CT 07:19
PROVIDERS: ATTEND Internal Medicine Cardiovascular Disease
DX: Z01.818 Encounter for other preprocedural examination (principal); I48.1 Persistent atrial fibrillation; R06.02 Shortness of breath
CPT/HCPCS: 71275; 84520

== ENCOUNTER 2017-04-24 09:18 | Outpatient (CLI) | payer MEDICARE ==
[2017-04-24 10:25] LABS: Mean Corpuscular Hemoglobin 32.9 pg (27.0-31.0); Mean Corpuscular Volume 99.8 fl (81.0-99.0); Mean Platelet Volume 8.4 fL (7.4-10.4); Platelet Count 182 thou/uL (130-400); RBC Distribution Width 12.7 % (11.5-14.5); Red Blood Cell (RBC) Count 4.26 mill/uL (4.20-5.40); White Blood Cell (WBC) Count 6.4 thou/uL (4.8-10.8)
[2017-04-24 10:30] LABS: INR-International Normal Ratio 1.1; Prothrombin Time 14.6 SEC (12.0-14.7)
[2017-04-24 12:35] LABS: Anion Gap 12 mmol/L (10-20); Calc. Creatinine Clearance 0 mL/min (70-130); Calcium 9.2 mg/dL (7.8-10.44); Carbon Dioxide 26 mmol/L (23-31); Chloride 105 mmol/L (98-107); Estimated GFR-MDRD 65; Potassium 4.2 mmol/L (3.5-5.1); Sodium 139 mmol/L (136-145)
[2017-04-24 12:44] LABS: Glucose 113 mg/dL (80-115)
[2017-04-24 12:49] LABS: BUN (Urea Nitrogen) 24 mg/dL (9.8-20.1)
--- NOTE | 2017-04-24 16:39 | EKG ---
Test Reason : Blood Pressure : / mmHG Vent. Rate : 060 BPM Atrial Rate : 416 BPM P-R Int : 000 ms QRS Dur : 082 ms QT Int : 422 ms P-R-T Axes : 000 038 049 degrees QTc Int : 422 ms Atrial fibrillation Low voltage QRS Abnormal ECG When compared with ECG of 10-MAR-2017 10:03, Atrial fibrillation has replaced Sinus rhythm QT has shortened Confirmed by DR. Gifty KOLB ([id number]) on 04/24/2017 4:38:49 PM Referred By: [facility] Confirmed By:DR. Gifty KOLB
== END 2017-04-24 09:19 | disposition home or self-care (01) ==
LOC: LABBT 09:18
PROVIDERS: ATTEND Internal Medicine Cardiovascular Disease
DX: Z01.818 Encounter for other preprocedural examination (principal); I48.91 Unspecified atrial fibrillation
CPT/HCPCS: 80048; 85027; 85610; 85730; 93005; 93010

== ENCOUNTER 2017-04-28 05:38 | Observation (INO) | payer MEDICARE ==
[2017-04-28] MEDS ORDERED: Lidocaine 1% (PF) 30 ML VIAL ONE (06:33)
[2017-04-28] MEDS ORDERED: Heparin 10,000 UNITS/1 ML VIAL ONE ×2 (06:33→07:54)
[2017-04-28] MEDS ORDERED: Fentanyl 250 MCG/5 ML VIAL ONE (07:01)
[2017-04-28] MEDS ORDERED: Phenylephrine HCL 10 MG/ML VIAL ONE ×2 (07:02→09:39)
[2017-04-28] MEDS ORDERED: Protamine Sulfate 50 MG/5 ML VIAL ONE (07:54)
[2017-04-28] MEDS ORDERED: Furosemide 40 MG/4 ML VIAL ONE (07:54)
[2017-04-28] MEDS ORDERED: Isoproterenol 0.2 MG/1 ML AMP ONE ×2 (08:40→11:13)
[2017-04-28] MEDS ORDERED: Heparin 25,000 units/D5W 500 ML ONE (11:04)
[2017-04-28] MEDS ORDERED: Promethazine HCl 25 MG/ML VIAL SLOW IVP PRN (12:38)
[2017-04-28] MEDS ORDERED: Morphine Sulfate 2 MG/ML SYRINGE SLOW IVP PRN (12:38)
[2017-04-28] MEDS ORDERED: Ondansetron HCl/PF 4 MG/2 ML Vial IVP PRN ×2 (12:38→16:56)
--- NOTE | 2017-04-28 14:00 | OP ---
DATE OF PROCEDURE: 04/28/2017 ELECTROPHYSIOLOGY STUDY AND RADIOFREQUENCYABLATION REPORT REFERRING PHYSICIAN: Dr. Mykel Hinojosa REASON FOR PROCEDURE: Mrs. Salas is a 71-year-old female with prior history of atrial flutter and fibrillation, prior cardioversions and propafenone use. She had recurrent atrial fibrillation persisting despite. She also has a history of hypertension and obesity. Normal LVEF 55/60% with diastolic dysfunction. PROCEDURE: The patient received general anesthesia by anesthesia provider. Please see separate report. The right and left femoral vein was draped and anesthetized using a subcutaneous lidocaine and with ultrasound guidance, the left and right femoral veins were cannulated. An 8 Burkinan short sheath x2 was reduced in both veins, total of 4. Following that, the left femoral vein was upgraded to an 11-Burkinan sheath and sheaths. Through the 11 Burkinan sheath , an ICE catheter was advanced to the right atrium and ultrasonic images of the right and left atrium were obtained. The ICE catheter was used to monitor the transseptal puncture as well as fluid activation of the pericardium throughout the case. Following that through the Burkinan sheath a dual catheter was advanced to the CS vein and the proximal poles to the right atrium. Through the right groin a SL1 transseptal sheath was advanced to the SVC and with the help of Fide needle under ICE monitoring transseptal puncture was performed x2. The patient received heparin throughout the case keeping the ACT levels over 350. One of the transseptal sheaths were exchanged over the wire to an Agilis sheath. Following that a 3D map of the left atrium was also obtained overlying the previously obtained CT scan images. Two left-sided veins and 3 right-sided veins were identified. Following that a pulmonary venous isolation procedure was performed. The patient remained in atrial fibrillation. Then a roof line and posterior wall isolation was performed as well. Atrial fibrillation still persisted. Additional lesions in the basal septum and the anterior superior septal area as well as the roof of the left atrium were placed. The patient remained in atrial fibrillation. At this point the patient was cardioverted eventually with a 250 joule shock. Following that isuprel was initiated and all veins were checked for connections and additional ablation lesions were applied. The posterior wall and the veins remained isolated. Following that, the sheaths were pulled to the right side. At this point the heparin was stopped. Protamine was given to reverse the anticoagulant effect. Following that has history of typical right atrial flutter. Cavotricuspid isthmus ablation was also performed achieving transisthmus x160 demonstrating transisthmus block by progressively lengthening transisthmus times measured from lateral wall adjacent to the CTI ablation line. Basic EP study was also performed demonstrating cycle length of 880, QRS about 75 milliseconds, QT 39 milliseconds, HV 58 milliseconds, sinus node recovery time after 500 milliseconds pacing was 1027. Corrected sinus node recovery time was about 200. VA block was demonstrated. Central retrograde conduction was noted. No additional arrhythmias were seen except during isuprel, short burst of atrial tachycardia was noted and the PACs were ablated to the base of the left atrial septum under the right inferior pulmonary vein. A total of 51 ablation lesions were delivered, total ablation time was 2460 seconds. CONCLUSION: 1. Successful pulmonary venous isolation performed. 2. Posterior wall isolation was also performed with the roof and basal line debulking the posterior wall. 3. Additional lesions by the anterior septum. 4. Inferior septum and the roof of the left atrium was also delivered. 5. Cavotricuspid isthmus ablation was also performed. PLAN: Resume anticoagulation. Routine followup. [facility]
[2017-04-28 14:29] VITALS: BMI 48.4
[2017-04-28] MEDS ORDERED: Bisacodyl 10 MG SUPP PR PRN (16:56)
[2017-04-28] MEDS ORDERED: traMADol HCl 50 MG TAB PO PRN (16:56)
[2017-04-28] MEDS ORDERED: Temazepam 15 MG CAP PO PRN (16:56)
[2017-04-28] MEDS ORDERED: diphenhydrAMINE 25 MG CAP PO PRN (16:56)
[2017-04-28] MEDS ORDERED: Silver Sulfadiazine 1% Cream 50 GM JAR TOP PRN (16:56)
[2017-04-28] MEDS ORDERED: Nitroglycerin 0.4 MG TAB (25 Tab Bottle) SL PRN (16:56)
[2017-04-28] MEDS ORDERED: Mag-Al 1200 mg/1200 mg/30 ML UDCUP PO PRN (16:56)
[2017-04-28] MEDS ORDERED: Bisacodyl 5 MG TAB PO PRN (16:56)
[2017-04-28] MEDS ORDERED: Acetaminophen 325 MG TAB PO PRN (16:56)
[2017-04-28] MEDS ORDERED: Triamcinolone 0.1% Cream 15 GM TUBE TOP PRN (17:01)
[2017-04-28] MEDS ORDERED: Azelastine 137 MCG/Spray 30 ML NS PRN (17:02)
[2017-04-28] MEDS ORDERED: Fluticasone Propionate Nasal Spray 16 gm Bottle NASAL PRN (17:03)
[2017-04-28] MEDS ORDERED: Loratadine 10 MG TAB PO PRN (17:04)
[2017-04-28] MEDS ORDERED: Ondansetron HCl/PF 4 MG/2 ML Vial ONE (17:20)
[2017-04-28] MEDS ORDERED: Heparin 30,000 units/30 ml VIAL ONE (17:20)
[2017-04-28] MEDS ORDERED: PROPOFOL 200 MG/20 ML VIAL ONE (17:20)
[2017-04-28] MEDS ORDERED: Glycopyrrolate 0.2 MG/ML 5 ML SYRINGE ONE (17:20)
[2017-04-28] MEDS ORDERED: PHENYLEPHRINE-NS 100 MCG/ML 10 ML SYRINGE ONE (17:20)
[2017-04-28] MEDS ORDERED: Naloxone HCl 0.4 mg/ml Vial ONE (17:20)
[2017-04-28] MEDS ORDERED: Dexamethasone 20 MG/5 ML VIAL ONE (17:20)
[2017-04-28] MEDS: Acetaminophen 500 MG TAB PO SCH (20:40)
[2017-04-28] MEDS: Apixaban 5 MG TAB PO SCH (20:40)
[2017-04-28] MEDS: Metoprolol Tartrate 50 MG TAB PO SCH (20:42)
[2017-04-28] MEDS: Calcium Carbonate 500 MG TAB PO SCH (20:42)
[2017-04-28] MEDS ORDERED: PARoxetine 20 MG TAB PO SCH (21:00)
[2017-04-29] MEDS ORDERED: Losartan/Hydrochlorothiazide 100 mg/25 mg Tablet PO SCH (09:00)
[2017-04-29] MEDS ORDERED: Lactinex Tablet PO SCH (09:00)
[2017-04-29] MEDS ORDERED: Multivit, Therapeutic 1 TAB PO SCH (09:00)
[2017-04-29] MEDS ORDERED: Furosemide 20 MG TAB PO SCH (09:00)
[2017-04-29] MEDS: Apixaban 5 MG TAB PO SCH (09:20)
[2017-04-29] MEDS: Calcium Carbonate 500 MG TAB PO SCH (09:21)
[2017-04-29] MEDS: Acetaminophen 500 MG TAB PO SCH (09:21)
[2017-04-29] MEDS: Metoprolol Tartrate 50 MG TAB PO SCH (09:21)
[2017-04-29 12:07] VITALS: BP 120/63; TEMP 98
--- NOTE | 2017-04-30 01:00 | DIS ---
DATE OF ADMISSION: 04/28/2017 DATE OF DISCHARGE: 04/29/[address] Darrell Alexander by MONIQUE Mariscal. CONDITION ON DISCHARGE: Stable. FINAL DIAGNOSES: Atrial fibrillation and atrial flutter, status post ablation. PROCEDURES: Pulmonary venous isolation and cavotricuspid isthmus ablation. HISTORY OF PRESENT ILLNESS: Ms. Salas is a 71-year-old female with a prior history of atrial fibrill ation and atrial flutter, which have persisted despite cardioversion and antiarrhythmic therapy with propafenone in the past. She also has a history of hypertension and morbid obesity. She has a prese rved left ventricular ejection fraction of 55%-60% with diastolic dysfunction. She was admitted to [facility] on observation on 04/28/2017. That day, she underwent pulmonary venous antrum i solation and ablation for atrial fibrillation, as well as cavotricuspid isthmus ablation for typical atrial flutter. All four pulmonary veins were successfully isolated. Posterior wall isolation was a lso performed of the roof and basal line debulking the posterior wall. Additional lesions were place d to the anterior septum as well as to the inferior septum and the roof of the left atrium. A total of 51 lesions were delivered with a total ablation time of 41 minutes. The patient tolerated the pro cedure well and has not had any postoperative complications. Her groin sites have been stable overni ght without sign of complication or hematoma. She has been up ambulating without difficulty or short ness of breath. She has been urinating and will be discharged with Lasix. Vital signs have been sta ble most recently, 98 degrees Fahrenheit, pulse is 60, respirations 18, oxygen saturation 93% on room air, and blood pressure 120/63. Of note, the patient has had early recurrence of her atrial fibrill ation today; however, rates have been well controlled and Ms. Salas is asymptomatic with this. We wi ll re-initiate propafenone at 150 mg t.i.d. and anticipate planning for cardioversion in 1 week unles s she chemically converts back to normal sinus rhythm. She will continue on oral anticoagulation as taken previously. DISCHARGE MEDICATIONS: Include Tylenol 500 mg as needed for pain; Eliquis 5 mg p.o. b.i.d., not to b e interrupted for the next 3 months without EP approval; Tums as needed; Flonase as needed; furosemid e 20 mg daily x3 days, then as needed for shortness of breath and fluid retention; lactobacillus jodi y; loratadine daily; losartan/hydrochlorothiazide 100/25 mg tab daily; metoprolol tartrate 75 mg b.i. d.; multivitamin daily; nitroglycerin sublingual as needed; Protonix 40 mg daily for 1 month; paroxet ine 10 mg at bedtime; potassium chloride 20 mEq daily x3 days, then only to be taken if taking Lasix; propafenone 150 mg tablet p.o. t.i.d.; Carafate 1 gram tablet q.i.d. p.o.; Restoril 15 mg tablet as needed; triamcinolone topical as needed. DISCHARGE INSTRUCTIONS: The patient is not to lift more than 20 pounds for the following 7 days. No soaking baths for 7 days. The patient is okay to shower. She will follow up in 4-6 weeks, and h[place] kessler has an appointment with [facility]. She will be set up for cardioversion in 1 week, having resumed prop afenone today.
--- NOTE | 2017-05-01 17:29 | EKG ---
Test Reason : POST EP STUDY/ABLATI Blood Pressure : / mmHG Vent. Rate : 093 BPM Atrial Rate : 093 BPM P-R Int : 204 ms QRS Dur : 086 ms QT Int : 398 ms P-R-T Axes : 058 016 064 degrees QTc Int : 494 ms Normal sinus rhythm Low voltage QRS Prolonged QT Abnormal ECG When compared with ECG of 24-APR-2017 10:06, Sinus rhythm has replaced Atrial fibrillation Vent. rate has increased BY 33 BPM QT has lengthened Confirmed by DR. Fercho ACOSTA ([id number]) on 05/01/2017 5:28:43 PM Referred By: [facility] Confirmed By:DR. Fercho ACOSTA
--- NOTE | 2017-05-01 17:33 | EKG ---
Test Reason : Blood Pressure : / mmHG Vent. Rate : 069 BPM Atrial Rate : 069 BPM P-R Int : 232 ms QRS Dur : 088 ms QT Int : 438 ms P-R-T Axes : 058 021 054 degrees QTc Int : 469 ms Sinus rhythm with 1st degree A-V block Low voltage QRS Borderline ECG When compared with ECG of 28-APR-2017 13:10, (Unconfirmed) No significant change was found Confirmed by DR. Fercho ACOSTA ([id number]) on 05/01/2017 5:32:32 PM Referred By: [facility] Confirmed By:DR. Fercho ACOSTA
--- NOTE | 2017-05-01 17:36 | EKG ---
Test Reason : Blood Pressure : / mmHG Vent. Rate : 085 BPM Atrial Rate : 267 BPM P-R Int : 000 ms QRS Dur : 088 ms QT Int : 392 ms P-R-T Axes : 000 011 021 degrees QTc Int : 466 ms Atrial flutter with variable A-V block Low voltage QRS Abnormal ECG When compared with ECG of 29-APR-2017 06:43, (Unconfirmed) Atrial flutter has replaced Sinus rhythm Confirmed by DR. Fercho ACOSTA ([id number]) on 05/01/2017 5:36:01 PM Referred By: [facility] Confirmed By:DR. Fercho ACOSTA
== END 2017-04-29 16:14 | disposition home or self-care (01) ==
LOC: CCL 05:38 → 2SW 12:49 → INTOOBSV 12:49
PROVIDERS: ADMIT Internal Medicine Cardiovascular Disease; ATTEND Internal Medicine Cardiovascular Disease
PROC: 4A023FZ Measurement of Cardiac Rhythm, Percutaneous Approach (ICD-10-PCS; principal; 2017-04-28)
PROC: 4A0234Z Measurement of Cardiac Electrical Activity, Percutaneous Approach (ICD-10-PCS; 2017-04-28)
PROC: 02583ZZ Destruction of Conduction Mechanism, Percutaneous Approach (ICD-10-PCS; 2017-04-28)
PROC: 02K83ZZ Map Conduction Mechanism, Percutaneous Approach (ICD-10-PCS; 2017-04-28)
DX: I48.1 Persistent atrial fibrillation (principal); I48.92 Unspecified atrial flutter; I10 Essential (primary) hypertension; I34.0 Nonrheumatic mitral (valve) insufficiency; I36.1 Nonrheumatic tricuspid (valve) insufficiency; E66.9 Obesity, unspecified; Z68.42 Body mass index [BMI] 45.0-49.9, adult; Z79.01 Long term (current) use of anticoagulants; Z79.52 Long term (current) use of systemic steroids; Z79.899 Other long term (current) drug therapy
CPT/HCPCS: 76942; 85347 ×2; 93005 ×2; 93613; 93623; 93655; 93656; 93662; C1730; C1731; C1732; C1759; C1769; G0378; 93010; J1100; J1644; J1940; J2001; J2310; J2370; J2405; J2704; J2720; J3010

== ENCOUNTER 2017-06-22 20:30 | Outpatient (CLI) | payer MEDICARE | END 2017-06-22 20:31 | disposition home or self-care (01) | LOC: SLEEPLAB 20:30 | PROVIDERS: ATTEND Internal Medicine Pulmonary Disease | DX: G47.33 Obstructive sleep apnea (adult) (pediatric) (principal); R53.83 Other fatigue; E66.9 Obesity, unspecified; I10 Essential (primary) hypertension; I48.91 Unspecified atrial fibrillation; G47.61 Periodic limb movement disorder | CPT/HCPCS: 95811 ==

== ENCOUNTER 2017-11-28 09:09 | Outpatient (CLI) | payer MEDICARE | END 2017-11-28 09:10 | disposition home or self-care (01) | LOC: BICMAMMO 09:09 | PROVIDERS: ATTEND Internal Medicine | DX: Z12.31 Encounter for screening mammogram for malignant neoplasm of breast (principal) | CPT/HCPCS: 77063; 77067 ==

== ENCOUNTER 2019-02-01 13:26 | Outpatient (CLI) | payer MEDICARE ==
--- NOTE | 2019-02-01 13:56 | MMO ---
Bilateral MAMMO Bilat Screen [facility]. CLINICAL HISTORY: Patient is 73 years old and is seen for screening. The patient has no family history of breast cancer. The patient has no personal history of cancer. The patient has a history of left Stereotatic Biopsy in April, - benign. VIEWS: The views performed were: bilateral craniocaudal with tomosynthesis and bilateral mediolateral oblique with tomosynthesis. FILMS COMPARED: The present examination has been compared to prior imaging studies performed at [facility] on 10/07/2014, 10/13/2015, 11/25/2016 and 11/28/2017. This study has been interpreted with the assistance of computer-aided detection. MAMMOGRAM FINDINGS: There are scattered fibroglandular densities. Finding 1: There are stable benign appearing calcifications seen in both breasts. Finding 2: There is a biopsy clip seen in the left breast. Nodularity is stable. There are no suspicious masses, suspicious calcifications, or new areas of architectural distortion. IMPRESSION: THERE IS NO MAMMOGRAPHIC EVIDENCE OF MALIGNANCY. A ROUTINE FOLLOW-UP MAMMOGRAM IN 1 YEAR IS RECOMMENDED. THE RESULTS OF THIS EXAM WERE SENT TO THE PATIENT. ACR BI-RADS Category 2 - Benign finding MAMMOGRAPHY NOTE: 1. A negative mammogram report should not delay a biopsy if a dominant of clinically suspicious mass is present. 2. Approximately 10% to 15% of breast cancers are not detected by mammography. 3. Adenosis and dense breasts may obscure an underlying neoplasm. Reported by: YASHIRA FINLEY MD Electonically Signed: [id number]
== END 2019-02-01 13:27 | disposition home or self-care (01) ==
LOC: BICMAMMO 13:26
PROVIDERS: ATTEND Internal Medicine
DX: Z12.31 Encounter for screening mammogram for malignant neoplasm of breast (principal)
CPT/HCPCS: 77063; 77067

== ENCOUNTER 2019-03-11 11:17 | Day surgery (SDC) | payer MEDICARE ==
[2019-03-09 16:41] VITALS: BMI 48.0
--- NOTE | 2019-03-11 15:58 | OP ---
DATE OF PROCEDURE: 03/11/2019 PROCEDURE PERFORMED: Colonoscopy. PREPROCEDURE DIAGNOSES: 1. Personal history of colon polyps. 2. Family history of colon cancer in her mother and maternal grandmother. POSTPROCEDURE DIAGNOSES: 1. Exam to cecum; adequate bowel preparation. 2. Orhe-xf-linixlcv diffuse diverticulosis coli. 3. Mildly redundant colon. 4. No polyps or arteriovenous malformations identified. 5. Hypertrophied anal papilla. 6. Small internal hemorrhoids. 7. Otherwise, normal colonoscopy. DESCRIPTION OF PROCEDURE: Written informed consent was obtained. The patient was brought to the endoscopy suite. Total intravenous anesthesia was administered by Dr. Dominguez. The patient was placed in the left lateral decubitus position. A digital rectal exam was performed that was unremarkable. A Pentax video colonoscope was inserted through the anal canal and advanced under direct visualization to the cecum. Position in the cecum was verified by clear identification of the ileocecal valve. The quality of the bowel preparation was adequate. Each colon segment was examined carefully as the colonoscope was slowly withdrawn from the cecum. Haustral folds and vascular pattern appeared grossly normal. Frequent diverticular orifices were noted throughout the colon, most numerous in the sigmoid colon. There was no evidence of diverticular bleeding or infection. No polyp or AVM was identified. The exam was somewhat limited due to the presence of brown bile liquid coating much of the colonic mucosa. Using copious irrigation and suctioning, most of this bile fluid was removed. In the rectum, a retroflexed view demonstrated small internal hemorrhoids that were not actively bleeding and hypertrophied anal papilla. The colon was decompressed as the colonoscope was removed from the patient. She was transferred to the Day Stay surgery area for postprocedure monitoring. There were no immediate complications. RECOMMENDATIONS: 1. Resume previous medications. 2. Resume previous diet. 3. Repeat colonoscopy in 5 years. 4. Follow up with Gastroenterology as needed. Job ID: [id number]
[2019-03-11] MEDS ORDERED: PROPOFOL 200 MG/20 ML VIAL ONE (15:59)
== END 2019-03-11 14:05 | disposition home or self-care (01) ==
LOC: SDC 11:17
PROVIDERS: ATTEND Internal Medicine Gastroenterology
PROC: 0DJD8ZZ Inspection of Lower Intestinal Tract, Via Natural or Artificial Opening Endoscopic (ICD-10-PCS; principal; 2019-03-11)
DX: Z12.11 Encounter for screening for malignant neoplasm of colon (principal); K57.30 Diverticulosis of large intestine without perforation or abscess without bleeding; K64.4 Residual hemorrhoidal skin tags; K64.8 Other hemorrhoids; Q43.8 Other specified congenital malformations of intestine; I10 Essential (primary) hypertension; F32.9 Major depressive disorder, single episode, unspecified; Z86.010 Personal history of colon polyps; Z87.891 Personal history of nicotine dependence; Z80.0 Family history of malignant neoplasm of digestive organs; Z79.1 Long term (current) use of non-steroidal anti-inflammatories (NSAID); Z79.82 Long term (current) use of aspirin; Z79.899 Other long term (current) drug therapy; Z96.653 Presence of artificial knee joint, bilateral
CPT/HCPCS: J0690; J2704

== ENCOUNTER 2020-02-09 12:12 | Outpatient (CLI) | payer MEDICARE ==
--- NOTE | 2020-02-09 12:43 | MMO ---
Bilateral MAMMO Bilat Screen [facility]. CLINICAL HISTORY: Patient is 74 years old and is seen for screening. The patient has no family history of breast cancer. The patient has no personal history of cancer. The patient has a history of left Stereotatic Biopsy in April, - benign. VIEWS: The views performed were: bilateral craniocaudal with tomosynthesis and bilateral mediolateral oblique with tomosynthesis. FILMS COMPARED: The present examination has been compared to prior imaging studies performed at [facility] on 10/13/2015, 11/25/2016, 11/28/2017 and 02/01/2019. This study has been interpreted with the assistance of computer-aided detection. MAMMOGRAM FINDINGS: There are scattered fibroglandular densities. Finding 1: There are stable benign appearing calcifications seen in both breasts. Finding 2: There is a biopsy clip seen in the left breast. Nodularity is stable. There are no suspicious masses, suspicious calcifications, or new areas of architectural distortion. IMPRESSION: THERE IS NO MAMMOGRAPHIC EVIDENCE OF MALIGNANCY. A ROUTINE FOLLOW-UP MAMMOGRAM IN 1 YEAR IS RECOMMENDED. THE RESULTS OF THIS EXAM WERE SENT TO THE PATIENT. ACR BI-RADS Category 2 - Benign finding MAMMOGRAPHY NOTE: 1. A negative mammogram report should not delay a biopsy if a dominant of clinically suspicious mass is present. 2. Approximately 10% to 15% of breast cancers are not detected by mammography. 3. Adenosis and dense breasts may obscure an underlying neoplasm. Reported by: YASHIRA FINLEY MD Electonically Signed: [id number]
== END 2020-02-09 12:13 | disposition home or self-care (01) ==
LOC: BICMAMMO 12:12
PROVIDERS: ATTEND Internal Medicine
DX: Z12.31 Encounter for screening mammogram for malignant neoplasm of breast (principal); Z91.89 Other specified personal risk factors, not elsewhere classified
CPT/HCPCS: 77063; 77067

== ENCOUNTER 2021-02-12 08:47 | Outpatient (CLI) | payer MEDICARE | END 2021-02-12 08:48 | disposition home or self-care (01) | LOC: BICMAMMO 08:47 | PROVIDERS: ATTEND Internal Medicine | DX: Z12.31 Encounter for screening mammogram for malignant neoplasm of breast (principal) | CPT/HCPCS: 77063; 77067 ==

== ENCOUNTER 2022-02-19 12:00 | Outpatient (CLI) | payer MEDICARE | END 2022-02-19 12:01 | disposition home or self-care (01) | LOC: BICMAMMO 12:00 | PROVIDERS: ATTEND Internal Medicine | DX: Z12.31 Encounter for screening mammogram for malignant neoplasm of breast (principal); R92.1 Mammographic calcification found on diagnostic imaging of breast; Z91.89 Other specified personal risk factors, not elsewhere classified | CPT/HCPCS: 77063; 77067 ==

== ENCOUNTER 2023-03-14 13:38 | Outpatient (CLI) | payer MEDICARE | END 2023-03-14 13:39 | disposition home or self-care (01) | LOC: BICMAMMO 13:38 | PROVIDERS: ATTEND Student in an Organized Health Care Education/Training Program | DX: Z12.31 Encounter for screening mammogram for malignant neoplasm of breast (principal); Z91.89 Other specified personal risk factors, not elsewhere classified | CPT/HCPCS: 77063; 77067 ==

== ENCOUNTER 2023-04-20 08:37 | Emergency (ER) | payer MEDICARE ==
[2023-04-20] MEDS ORDERED: Morphine 4 MG/ML VIAL ONE (09:17)
[2023-04-20] MEDS ORDERED: Ondansetron PF 4 MG/2 ML Vial ONE (09:17)
[2023-04-20 09:22] LABS: #Monocytes 0.9 thou/uL (0.11-0.59); %Basophils 0.3 % (0.0-1.0); %Eosinophils 0.1 % (0.0-10.0); %Lymphocytes 5.8 % (21.0-51.0); %Monocytes 5.9 % (0.0-10.0); %Neutrophils 87.6 % (42.0-75.0); Hematocrit 35.6 % (36.0-47.0); Hemoglobin 12.3 g/dL (12.0-16.0); Mean Corpuscular HGB CONC 34.6 g/dL (32.0-36.0); Mean Corpuscular Hemoglobin 32.5 pg (27.0-31.0); Mean Corpuscular Volume 93.9 fl (78.0-98.0); Mean Platelet Volume 10.6 fL (7.4-10.4); Platelet Count 194 10x3/uL (130-400); RBC Distribution Width 13.5 % (11.5-14.5); Red Blood Cell (RBC) Count 3.79 mill/uL (4.20-5.40); White Blood Cell (WBC) Count 14.9 10x3/uL (4.8-10.8)
[2023-04-20 09:40] LABS: ALT (SGPT) 12 U/L (8-55); AST (SGOT) 19 U/L (5-34); Albumin 4.4 g/dL (3.4-4.8); Alkaline Phosphatase 68 U/L (40-110); Anion Gap 15 mmol/L (10-20); BUN (Urea Nitrogen) 20 mg/dL (9.8-20.1); Bilirubin, Total 0.8 mg/dL (0.2-1.2); Calc. Creatinine Clearance 0 mL/min (70-130); Carbon Dioxide 21 mmol/L (23-31); Chloride 105 mmol/L (98-107); Estimated GFR 52; Glucose 201 mg/dL (83-110); Lipase 13 U/L (8-78); Potassium 3.7 mmol/L (3.5-5.1); Protein, Total 7.4 g/dL (5.8-8.1); Sodium 137 mmol/L (136-145)
[2023-04-20 09:43] LABS: Troponin I Less than 0.010 ng/mL (< 0.028)
[2023-04-20] MEDS ORDERED: Cyclobenzaprine 10 MG TAB ONE (10:12)
[2023-04-20 11:50] LABS: Bacteria/HPF None Seen HPF (None Seen); Bilirubin Negative (Negative); Blood, Urine Trace (Negative); CAUTI Indications for Culture Fever or rigors; Clarity Clear (Clear); Glucose, Urine (Dipstick) Normal (Negative); Ketone, Urine Negative (Negative); Leukocyte 75 Leu/uL (Negative); Nitrite Negative (Negative); Protein, Urine (Dipstick) Negative (Neg-Trace); Specific Gravity, Urine 1.013 (1.002-1.036); Squamous Epithelial 0-3 HPF (0-3); Urobilinogen Normal mg/dL (Less than 2)
[2023-04-20 11:51] LABS: Urine Culture Reflex No No
== END 2023-04-20 12:05 | disposition home or self-care (01) ==
LOC: ERS 08:37
DX: R07.89 Other chest pain (principal); M54.2 Cervicalgia; M25.511 Pain in right shoulder; I10 Essential (primary) hypertension; I48.91 Unspecified atrial fibrillation; Z79.01 Long term (current) use of anticoagulants; Z79.84 Long term (current) use of oral hypoglycemic drugs; Z79.82 Long term (current) use of aspirin; Z79.899 Other long term (current) drug therapy
CPT/HCPCS: 71045; 80053; 81001; 83690; 84484; 85025; 93005; 96374; 96375; J2270; J2405

== ENCOUNTER 2023-08-16 09:16 | Emergency (ER) | payer MEDICARE ==
[2023-08-16] MEDS ORDERED: Lidocaine 1% w/Epinephrine 1:100K 20 ML VIAL ONE (10:36)
[2023-08-16 10:54] LABS: #Basophils 0.03 10x3/uL (0.0-0.2); %Basophils 0.2 % (0.0-1.0); %Lymphocytes 11.6 % (21.0-51.0); %Monocytes 5.8 % (0.0-10.0); %Neutrophils 81.2 % (42.0-75.0); Hematocrit 35.9 % (36.0-47.0); Hemoglobin 12.1 g/dL (12.0-16.0); Mean Corpuscular HGB CONC 33.7 g/dL (32.0-36.0); Mean Corpuscular Hemoglobin 31.8 pg (27.0-31.0); Mean Corpuscular Volume 94.2 fL (78.0-98.0); Mean Platelet Volume 10.7 fL (7.4-10.4); Platelet Count 186 10x3/uL (130-400); RBC Distribution Width 13.5 % (11.5-14.5); Red Blood Cell (RBC) Count 3.81 mill/uL (4.20-5.40)
[2023-08-16 11:14] LABS: ALT (SGPT) 14 U/L (8-55); AST (SGOT) 22 U/L (5-34); Albumin 3.9 g/dL (3.4-4.8); Alkaline Phosphatase 58 U/L (40-110); Anion Gap 14 mmol/L (10-20); BUN (Urea Nitrogen) 19 mg/dL (9.8-20.1); Bilirubin, Total 0.6 mg/dL (0.2-1.2); Calc. Creatinine Clearance 0 mL/min (70-130); Calcium 9.9 mg/dL (7.8-10.44); Carbon Dioxide 24 mmol/L (23-31); Chloride 108 mmol/L (98-107); Estimated GFR 65; Globulin 3.2 g/dL (2.4-3.5); Glucose 140 mg/dL (83-110); Potassium 4.1 mmol/L (3.5-5.1); Protein, Total 7.1 g/dL (5.8-8.1); Sodium 142 mmol/L (136-145)
[2023-08-16 11:21] LABS: INR-International Normal Ratio 1.3; PTT 33.6 sec (22.9-36.1); Prothrombin Time 16.4 sec (12.0-14.7)
[2023-08-16] MEDS ORDERED: Acetaminophen 325 MG TAB ONE (12:24)
== END 2023-08-16 13:46 | disposition home or self-care (01) ==
LOC: ERS 09:16
DX: S01.01XA Laceration without foreign body of scalp, initial encounter (principal); I10 Essential (primary) hypertension; I48.91 Unspecified atrial fibrillation; Z79.01 Long term (current) use of anticoagulants; W18.09XA Striking against other object with subsequent fall, initial encounter
CPT/HCPCS: 12004; 36415; 70450; 72125; 80053; 85025; 85610; 85730; 86850; 86900; 86901

== ENCOUNTER 2023-08-20 08:16 | Outpatient (CLI) | payer MEDICARE | END 2023-08-20 08:17 | disposition home or self-care (01) | LOC: BICMAMMO 08:16 | PROVIDERS: ATTEND Student in an Organized Health Care Education/Training Program | DX: Z13.820 Encounter for screening for osteoporosis (principal); M85.852 Other specified disorders of bone density and structure, left thigh; Z78.0 Asymptomatic menopausal state | CPT/HCPCS: 77080 ==

== ENCOUNTER 2023-11-20 11:32 | Outpatient (CLI) | payer MEDICARE | END 2023-11-20 11:33 | disposition home or self-care (01) | LOC: BICULT 11:32 | PROVIDERS: ATTEND Student in an Organized Health Care Education/Training Program | DX: R59.9 Enlarged lymph nodes, unspecified (principal); E04.1 Nontoxic single thyroid nodule | CPT/HCPCS: 76536 ==

== ENCOUNTER 2023-12-09 07:50 | Outpatient (CLI) | payer MEDICARE ==
[2023-12-09] MEDS ORDERED: Iopamidol 370 76% 100 ML VIAL ONE (10:24)
== END 2023-12-09 07:51 | disposition home or self-care (01) ==
LOC: BICCT 07:50
PROVIDERS: ATTEND Family Medicine
DX: E04.2 Nontoxic multinodular goiter (principal); R91.1 Solitary pulmonary nodule; K11.8 Other diseases of salivary glands
CPT/HCPCS: 36415; 70491; 82565; Q9967